=== PATIENT | female | born 1955 | race Caucasian/White ===

== ENCOUNTER 2020-05-29 09:58 | Outpatient (REF) | payer MEDICARE, SELFPAY ==
[2020-05-29 11:14] LABS: Iron 95 mcg/dL (30-160); Percent Iron Saturation 30 % (15-50); Total Iron Binding Capacity 320 mcg/dL (228-428); Unsaturated Iron Binding 225 ug/dL
== END 2020-05-29 09:59 | disposition home or self-care (01) ==
LOC: HO.BBR 09:58
PROVIDERS: PCP Internal Medicine; Visit Provider Physician Assistant Medical
DX: E83.110 Hereditary hemochromatosis (principal)
CPT/HCPCS: 83540

== ENCOUNTER 2020-07-19 08:51 | Outpatient (REF) | payer MEDICARE, SELFPAY ==
--- NOTE | 2020-07-19 08:56 | MM_ITS ---
EXAMINATION: MM SCREENING DIGITAL BREAST TOMOSYNTHESIS, BILATERAL CLINICAL INFORMATION: Screening. Asymptomatic. The lifetime risk of breast cancer based on the Tyrer-Cuzick Model is 5.8%. COMPARISON: Mammography: July 13, 2019 and studies dating back to January 08, 2013 TECHNIQUE: Digital breast tomosynthesis is performed in both the craniocaudal and mediolateral oblique views along with computer-aided detection (CAD). Synthesized 2D images are generated from the tomosynthesis. FINDINGS: The breasts are heterogeneously dense, which may obscure small masses (ACR BI-RADS breast composition Category c). There are no significant masses, abnormal calcifications, or other abnormalities. MM/MM tomosynthesis screening BI IMPRESSION: There are no significant changes from prior study. ASSESSMENT: BI-RADS 1: Negative RECOMMENDATION: Routine annual mammography screening. This patient's information was entered into a reminder system with a target due date for their next mammogram.
== END 2020-07-19 08:52 | disposition home or self-care (01) ==
LOC: HO.MAMMO 08:51
PROVIDERS: PCP Family Medicine; Visit Provider Family Medicine
DX: Z12.31 Encounter for screening mammogram for malignant neoplasm of breast (principal)
CPT/HCPCS: 77063; 77067

== ENCOUNTER 2020-08-28 09:58 | Outpatient (REF) | payer MEDICARE, SELFPAY ==
[2020-08-28 11:22] LABS: Iron 60 mcg/dL (30-160); Percent Iron Saturation 18 % (15-50); Total Iron Binding Capacity 342 mcg/dL (228-428); Unsaturated Iron Binding 282 ug/dL
== END 2020-08-28 09:59 | disposition home or self-care (01) ==
LOC: HO.BBR 09:58
PROVIDERS: PCP Family Medicine; Visit Provider Physician Assistant Medical
DX: E83.110 Hereditary hemochromatosis (principal)
CPT/HCPCS: 36415; 83540

== ENCOUNTER 2020-12-12 10:06 | Outpatient (REF) | payer MEDICARE, SELFPAY ==
[2020-12-12 11:30] LABS: Iron 68 mcg/dL (30-160); Percent Iron Saturation 19 % (15-50); Total Iron Binding Capacity 366 mcg/dL (228-428); Unsaturated Iron Binding 298 ug/dL
== END 2020-12-12 10:07 | disposition home or self-care (01) ==
LOC: HO.BBR 10:06
PROVIDERS: Visit Provider Physician Assistant Medical
DX: E83.110 Hereditary hemochromatosis (principal)
CPT/HCPCS: 36415; 83540

== ENCOUNTER 2021-03-07 09:54 | Outpatient (REF) | payer MEDICARE, SELFPAY ==
[2021-03-07 14:34] LABS: Iron 74 mcg/dL (30-160); Percent Iron Saturation 22 % (15-50); Total Iron Binding Capacity 335 mcg/dL (228-428); Unsaturated Iron Binding 261 ug/dL
== END 2021-03-07 09:55 | disposition home or self-care (01) ==
LOC: HO.BBR 09:54
PROVIDERS: Visit Provider Physician Assistant Medical
DX: E83.110 Hereditary hemochromatosis (principal)
CPT/HCPCS: 36415; 83540

== ENCOUNTER 2021-06-06 10:00 | Outpatient (REF) | payer MEDICARE, SELFPAY ==
[2021-06-06 12:12] LABS: Iron 59 mcg/dL (30-160); Percent Iron Saturation 17 % (15-50); Total Iron Binding Capacity 355 mcg/dL (228-428); Unsaturated Iron Binding 296 ug/dL
== END 2021-06-06 10:01 | disposition home or self-care (01) ==
LOC: HO.BBR 10:00
PROVIDERS: Visit Provider Physician Assistant Medical
DX: E83.110 Hereditary hemochromatosis (principal)
CPT/HCPCS: 36415; 83540

== ENCOUNTER 2021-08-15 08:50 | Outpatient (REF) | payer MEDICARE, SELFPAY ==
--- NOTE | ~2021-08-15 | MM_ITS ---
EXAMINATION: MM SCREENING DIGITAL BREAST TOMOSYNTHESIS, BILATERAL CLINICAL INFORMATION: Screening. Asymptomatic. The lifetime risk of breast cancer based on the Tyrer-Cuzick Model is 5%. COMPARISON: Mammography: 03/18/2021, 07/13/2019, 07/07/2018, 07/01/2017, 05/24/2016, 05/17/2016, 03/30/2015 TECHNIQUE: Digital breast tomosynthesis is performed in both the craniocaudal and mediolateral oblique views along with computer-aided detection (CAD). Synthesized 2D images are generated from the tomosynthesis. Additional right MLO view is provided. FINDINGS: There are scattered areas of fibroglandular density (ACR BI-RADS breast composition Category b). Right breast is similar to prior studies. There is no developing density or interval mass or architectural abnormality. Neither breast shows abnormal calcifications. The bilateral axilla and skin contours are unremarkable. Left CC view has chronic parenchymal asymmetry central inner breast with mild benign involution of the glandular tissue since 2014. The remaining tissue has rounded contour on CC view but without correlate on MLO view. Patient will be recalled in order to fully characterize area. MM/MM tomosynthesis screening BI IMPRESSION: 1. Left: Parenchymal asymmetry central inner breast on CC view with rounded contour. 2. Right: No mammographic evidence of malignancy. ASSESSMENT: BI-RADS 0: Incomplete - Need Additional Imaging Evaluation RECOMMENDATION: 1. Additional views of the left breast (spot CC, rolled CC x2). 2. Targeted ultrasound if warranted after review of the additional views. 3. Radiology department staff will contact the patient for additional imaging. This patient's information was entered into a reminder system with a target due date for their next mammogram.
== END 2021-08-15 08:51 | disposition home or self-care (01) ==
LOC: HO.MAMMO 08:50
PROVIDERS: PCP Family Medicine; Visit Provider Family Medicine
DX: Z12.31 Encounter for screening mammogram for malignant neoplasm of breast (principal)
CPT/HCPCS: 77063; 77067

== ENCOUNTER 2021-08-28 08:24 | Outpatient (REF) | payer MEDICARE, SELFPAY ==
--- NOTE | ~2021-08-28 | MM_ITS ---
EXAMINATION: MM DIAGNOSTIC DIGITAL BREAST TOMOSYNTHESIS, LEFT CLINICAL INFORMATION: Recall from screening for asymmetric density central inner left breast on CC view. No MLO correlate. COMPARISON: Mammography: 08/15/2021, 07/19/2020, 07/13/2019 TECHNIQUE: Digital breast tomosynthesis is performed. 2D images are generated from the tomosynthesis. The following views are obtained: Spot CC, rolled CC x2. FINDINGS: There are scattered areas of fibroglandular density (ACR BI-RADS breast composition Category b). The additional views show no persistent asymmetric density. There is no interval mass or architectural abnormality. Results are discussed with the patient at time of visit. MM/MM tomosynthesis added views L IMPRESSION: Additional views show no persistent asymmetric density, mass, architectural abnormality. ASSESSMENT: BI-RADS 1: Negative RECOMMENDATION: Routine annual mammography screening. This patient's information was entered into a reminder system with a target due date for their next mammogram.
== END 2021-08-28 08:25 | disposition home or self-care (01) ==
LOC: HO.MAMMO 08:24
PROVIDERS: PCP Family Medicine; Visit Provider Family Medicine
DX: N64.89 Other specified disorders of breast (principal)
CPT/HCPCS: 77061; 77065

== ENCOUNTER 2021-09-05 10:00 | Outpatient (REF) | payer MEDICARE, SELFPAY ==
[2021-09-05 11:56] LABS: Iron 93 mcg/dL (30-160); Percent Iron Saturation 29 % (15-50); Total Iron Binding Capacity 324 mcg/dL (228-428); Unsaturated Iron Binding 231 ug/dL
== END 2021-09-05 10:01 | disposition home or self-care (01) ==
LOC: HO.BBR 10:00
PROVIDERS: Visit Provider Physician Assistant Medical
DX: E83.110 Hereditary hemochromatosis (principal)
CPT/HCPCS: 36415; 83540

== ENCOUNTER 2021-12-05 10:00 | Outpatient (REF) | payer MEDICARE, SELFPAY ==
[2021-12-05 12:10] LABS: Iron 34 mcg/dL (30-160); Percent Iron Saturation 10 % (15-50); Total Iron Binding Capacity 325 mcg/dL (228-428); Unsaturated Iron Binding 291 ug/dL
== END 2021-12-05 10:01 | disposition home or self-care (01) ==
LOC: HO.BBR 10:00
PROVIDERS: Visit Provider Physician Assistant Medical
DX: E83.110 Hereditary hemochromatosis (principal)
CPT/HCPCS: 36415; 83540

== ENCOUNTER 2022-03-06 09:56 | Outpatient (REF) | payer MEDICARE, SELFPAY ==
[2022-03-06 11:58] LABS: Iron 46 mcg/dL (30-160); Percent Iron Saturation 13 % (15-50); Total Iron Binding Capacity 359 mcg/dL (228-428); Unsaturated Iron Binding 313 ug/dL
== END 2022-03-06 09:57 | disposition home or self-care (01) ==
LOC: HO.BBR 09:56
PROVIDERS: Visit Provider Physician Assistant Medical
DX: E83.110 Hereditary hemochromatosis (principal)
CPT/HCPCS: 36415; 83540

== ENCOUNTER 2022-06-12 10:56 | Outpatient (REF) | payer MEDICARE, SELFPAY ==
[2022-06-12 12:36] LABS: Iron 43 mcg/dL (30-160); Percent Iron Saturation 14 % (15-50); Total Iron Binding Capacity 315 mcg/dL (228-428); Unsaturated Iron Binding 272 ug/dL
== END 2022-06-12 10:57 | disposition home or self-care (01) ==
LOC: HO.BBR 10:56
PROVIDERS: PCP Family Medicine; Visit Provider Physician Assistant Medical
DX: E83.110 Hereditary hemochromatosis (principal)
CPT/HCPCS: 36415; 83540

== ENCOUNTER 2022-09-10 11:09 | Outpatient (REF) | payer MEDICARE, SELFPAY ==
--- NOTE | ~2022-09-10 | MM_ITS ---
EXAMINATION: MM SCREENING DIGITAL BREAST TOMOSYNTHESIS, BILATERAL CLINICAL INFORMATION: Screening. Asymptomatic. The lifetime risk of breast cancer based on the Tyrer-Cuzick Model is 5.3%. COMPARISON: Mammography: October 28, 2021 and studies dating back to May 17, 2016 TECHNIQUE: Digital breast tomosynthesis is performed in both the craniocaudal and mediolateral oblique views along with computer-aided detection (CAD). Synthesized 2D images are generated from the tomosynthesis. FINDINGS: There are scattered areas of fibroglandular density (ACR BI-RADS breast composition Category b). There are no significant masses, abnormal calcifications, or other abnormalities. MM/MM tomosynthesis screening BI IMPRESSION: No significant changes from prior exam. ASSESSMENT: BI-RADS 1: Negative RECOMMENDATION: Routine annual mammography screening. This patient's information was entered into a reminder system with a target due date for their next mammogram.
== END 2022-09-10 11:10 | disposition home or self-care (01) ==
LOC: HO.MAMMO 11:09
PROVIDERS: PCP Family Medicine; Visit Provider Family Medicine
DX: Z12.31 Encounter for screening mammogram for malignant neoplasm of breast (principal)
CPT/HCPCS: 77063; 77067

== ENCOUNTER 2022-09-10 12:37 | Outpatient (REF) | payer MEDICARE, SELFPAY ==
[2022-09-10 16:13] LABS: Iron 60 mcg/dL (30-160); Percent Iron Saturation 19 % (15-50); Total Iron Binding Capacity 316 mcg/dL (228-428); Unsaturated Iron Binding 256 ug/dL
== END 2022-09-10 12:38 | disposition home or self-care (01) ==
LOC: HO.BBR 12:37
PROVIDERS: PCP Family Medicine; Visit Provider Physician Assistant Medical
DX: E83.110 Hereditary hemochromatosis (principal)
CPT/HCPCS: 36415; 83540

== ENCOUNTER 2022-12-18 12:58 | Outpatient (REF) | payer MEDICARE, SELFPAY | END 2022-12-18 12:59 | disposition home or self-care (01) | LOC: HO.BBR 12:58 | PROVIDERS: Visit Provider Physician Assistant Medical | DX: E83.110 Hereditary hemochromatosis (principal) | CPT/HCPCS: 36415; 83540 ==

== ENCOUNTER 2023-03-20 12:58 | Outpatient (REF) | payer MEDICARE, SELFPAY ==
[2023-03-20 14:54] LABS: Iron 64 mcg/dL (30-160); Percent Iron Saturation 22 % (15-50); Total Iron Binding Capacity 295 mcg/dL (228-428); Unsaturated Iron Binding 231 ug/dL
== END 2023-03-20 12:59 | disposition home or self-care (01) ==
LOC: HO.BBR 12:58
PROVIDERS: PCP Family Medicine; Visit Provider Physician Assistant Medical
DX: E83.110 Hereditary hemochromatosis (principal)
CPT/HCPCS: 36415; 83540

== ENCOUNTER 2023-06-19 12:57 | Outpatient (REF) | payer MEDICARE, SELFPAY | END 2023-06-19 12:58 | disposition home or self-care (01) | LOC: HO.BBR 12:57 | PROVIDERS: PCP Family Medicine; Visit Provider Physician Assistant Medical | DX: E83.110 Hereditary hemochromatosis (principal) | CPT/HCPCS: 36415; 83540 ==

== ENCOUNTER 2023-09-15 10:52 | Outpatient (REF) | payer MEDICARE, SELFPAY ==
--- NOTE | ~2023-09-15 | MM_ITS ---
EXAMINATION: MM SCREENING DIGITAL BREAST TOMOSYNTHESIS, BILATERAL CLINICAL INFORMATION: Screening. Asymptomatic. COMPARISON: Mammography: This study is compared with prior exams dating back to 2021. TECHNIQUE: Digital breast tomosynthesis is performed in both the craniocaudal and mediolateral oblique views along with computer-aided detection (CAD). Synthesized 2D images are generated from the tomosynthesis. FINDINGS: The breasts are heterogeneously dense, which may obscure small masses (ACR BI-RADS breast composition Category c). There are no significant masses, abnormal calcifications, or other abnormalities. MM/MM tomosynthesis screening BI IMPRESSION: No mammographic evidence of malignancy. ASSESSMENT: BI-RADS BI-RADS 1 - Negative RECOMMENDATION: Routine annual mammography screening. 1 year F/U This examination should not preclude the clinical evaluation of a suspicious palpable abnormality. This patient's information was entered into a reminder system with a target due date for their next mammogram.
== END 2023-09-15 10:53 | disposition home or self-care (01) ==
LOC: HO.MAMMO 10:52
PROVIDERS: PCP Family Medicine; Visit Provider Family Medicine
DX: Z12.31 Encounter for screening mammogram for malignant neoplasm of breast (principal)
CPT/HCPCS: 77063; 77067

== ENCOUNTER → 2023-09-15 11:00 | Outpatient (BNV) | payer MEDICARE, SELFPAY | PROVIDERS: PCP Family Medicine; Visit Provider Radiology Diagnostic Radiology | DX: Z12.31 Encounter for screening mammogram for malignant neoplasm of breast (principal) | CPT/HCPCS: 77063; 77067 ==

== ENCOUNTER 2023-09-22 13:55 | Outpatient (REF) | payer MEDICARE, SELFPAY ==
[2023-09-22 15:32] LABS: Iron 81 mcg/dL (30-160); Percent Iron Saturation 30 % (15-50); Total Iron Binding Capacity 271 mcg/dL (228-428); Unsaturated Iron Binding 190 ug/dL
== END 2023-09-22 13:56 | disposition home or self-care (01) ==
LOC: HO.BBR 13:55
PROVIDERS: PCP Family Medicine; Visit Provider Physician Assistant Medical
DX: E83.110 Hereditary hemochromatosis (principal)
CPT/HCPCS: 36415; 83540

== ENCOUNTER 2024-01-09 10:51 | Outpatient (REF) | payer MEDICARE, SELFPAY ==
[2024-01-09 12:39] LABS: Iron 130 mcg/dL (30-160); Percent Iron Saturation 48 % (15-50); Total Iron Binding Capacity 272 mcg/dL (228-428); Unsaturated Iron Binding 142 ug/dL
[2024-01-09 12:57] LABS: Ferritin 19 ng/mL (10-250)
== END 2024-01-09 10:52 | disposition home or self-care (01) ==
LOC: HO.BBR 10:51
PROVIDERS: PCP Family Medicine; Visit Provider Internal Medicine Gastroenterology
DX: E83.110 Hereditary hemochromatosis (principal)
CPT/HCPCS: 36415; 82728; 83540

== ENCOUNTER 2024-04-14 12:56 | Outpatient (REF) | payer MEDICARE, SELFPAY | END 2024-04-14 12:57 | disposition home or self-care (01) | LOC: HO.BBR 12:56 | PROVIDERS: PCP Family Medicine; Visit Provider Internal Medicine Gastroenterology | DX: Z13.89 Encounter for screening for other disorder (principal) ==

== ENCOUNTER 2024-07-15 13:00 | Outpatient (REF) | payer MEDICARE, SELFPAY ==
[2024-07-15 14:57] LABS: Iron 133 mcg/dL (30-160); Percent Iron Saturation 46 % (15-50); Total Iron Binding Capacity 292 mcg/dL (228-428); Unsaturated Iron Binding 159 ug/dL
[2024-07-15 15:03] LABS: Ferritin 15 ng/mL (10-250)
--- OUTSIDE RECORDS SUMMARY | 2024-07-15 16:50 | XMS_ITS | Continuity of Care Document ---
Author Organization [facility] Address [address] [place] [address]- Care Team Providers Care Beater Out Leveling Machine Name Role Phone Luis PATINO, Aleja Arias Primary Care Physic devan Encounter [facility] Date(s): 05/26/24 - 06/25/24 [facility] [address] [place] [address]- Encounter Type: Triage Allergies, Adverse Reactions, Alerts Substance Criticality Severity Reaction Reaction Severity Status Glutens 1 Active 1celiac disease Immunizations Given and Recorded Vaccine Date Status Refusal Reason influenza virus vaccine, inactivated 03/12/23 William rded influenza virus vaccine, inactivated 1 04/16/22 Gi sherly influenza virus vaccine, inactivated 03/09/21 William rded influenza virus vaccine, inactivated 04/05/19 William rded influenza virus vaccine, inactivated 04/15/18 William rded influenza virus vaccine, inactivated 2 06/25/12 Gi sherly SARS-CoV-2(COVID-19)mRNA-LNP vac([id number]) 03/12/23 Recorded pneumococcal 20-valent conjugate vaccine 3 07/17/22 Given tetanus/diphtheria/pertussis, acel(Tdap) 4 07/17/22 Given [id number] bivalent booster vax 02/27/22 Recorded SARS-CoV-2 (COVID-19) mRNA-1273 vaccine 5 09/26/21 Given SARS-CoV-2 (COVID-19) mRNA-1273 vaccine 04/27/21 R ecorded SARS-CoV-2 (COVID-19) mRNA-1273 vaccine 09/14/20 G iven SARS-CoV-2 (COVID-19) mRNA-1273 vaccine 08/17/20 G iven zoster vaccine, inactivated 02/23/18 Recorded Zoster Vaccine Live 6 06/30/13 Recorded tetanus-diphtheria toxoids (Td) 7 11/17/09 Given 1Result Comment: [facility]; 15121-994-27 2Admin Note: [facility] 3Result Comment: [facility]: [id number] 4Result Comment: [facility]: 76223-329-22 5Result Comment: [facility] [id number] 6Result Comment: [07/11/2015] [facility] 7Admin Note: biologic Medications atorvastatin 20 mg oral tablet 1 tablet = 20 mg, By Mouth, Daily, # 90 tablet, 3 Refills, Maintenance, 05/26/24 1:59:00 PM EST, Tablet, [facility] #[id number], Partial fill upon patient request if the prescription is for a schedule II opioid drug., 172, cm, 03/03/24 10:22:00 EDT, Height, 72, kg, 07/18/23 11:04:00 EST, Dry Weight Start Date: 05/26/24 Status: Ordered Quantity: 90.0 Unit: tablet Repeat number: 4 Azo cranberry 0 Refills, Maintenance, 07/17/22 2:43:00 PM EST, Partial fill upon patient request if the prescription is for a schedule II opioid drug. Start Date: 07/17/22 Status: Ordered Repeat number: 1 Centrum Silver Women's By Mouth, Daily, 0 Refills, Maintenance, 08/23/21 10:59:00 AM EST, Partial fill upon patient requestif the prescription is for a schedule II opioid drug. Start Date: 08/23/21 Status: Ordered Repeat number: 1 Toprol XL 25 mg oral tablet, extended release 25 mg, 1, tablet, By Mouth, Daily, # 90 tablet, Refills 3, Tot. Refills 3, Maintenance, 06/24/24 8:40:00 AM EST, Route to Pharmacy Electronically, [facility] #[id number], Partial fill upon patientrequest if the prescription is for a schedule II opioid drug., 172, cm, 06/18/24 6:24:00 EST, Height, 72, kg, 07/18/23 11:04:00 EST, Dry Weight Start Date: 06/24/24 Stop Date: 06/19/25 Status: Ordered Quantity: 90.0 Unit: tablet Repeat number: 4 Indication: Unspecified atrial fibrillation Toprol XL 25 mg oral tablet, extended release 25 mg, 1, tablet, By Mouth, Daily, for 90 days, # 90 tablet, Refills 3, Tot. Refills 3, Hard Stop 07/02/24 11:39:00 AM EST, 07/08/23 11:39:00 AM EST, Route to Pharmacy Electronically, [facility] #[id number], Partial fill upon patient request if the prescription is for a schedule II opioid drug.,172.3, cm, 07/08/23 11:18:00 EST, Height Start Date: 07/08/23 Stop Date: 07/02/24 Status: Ordered Quantity: 90.0 Unit: tablet Repeat number: 4 Indication: Unspecified atrial fibrillation Xarelto 20 mg oral tablet 1 tablet = 20 mg, By Mouth, Daily before dinner, # 90 tablet, 3 Refills, Maintenance, 01/21/24 1:03:00 PM EDT, [facility] #[id number], 172, cm, 12/10/23 10:09:00 EDT, Height, 72, kg, 07/18/23 11:04:00 EST, Dry Weight Start Date: 01/21/24 Status: Ordered Quantity: 90.0 Unit: tablet Repeat number: 4 Xyzal By Mouth, Daily before dinner, 0 Refills, Maintenance, 12/10/23 10:07:00 AM EDT, Partial fill upon patient request if the prescription is for a schedule II opioid drug. Start Date: 12/10/23 Status: Ordered Repeat number: 1 Problem List Condition Confirmation Course Effective Dates Status Health Status Informant Carpal tunnel syndrome of right wrist Confirmed Active Gluten-sensitive enteropathy Confirmed Active Chronic sinusitis Confirmed Active Elevated BP without diagnosis of hypertension Confirmed Active Epidermoid cyst Confirmed Active Family history of cancer of colon Confirmed Active Hemochromatosis Confirmed Active Hypercholesterolemia Confirmed Active Joint pain Confirmed Active B12 deficiency anemia Confirmed Active Osteopenia Confirmed Active Paroxysmal atrial fibrillation Confirmed Active Left-sided sensorineural hearing loss Confirmed Active Vertigo Confirmed Active Social History Social History Type Response Smoking Status Never smoker entered on: 07/27/13 Sex Sex Representation Female (finding) Patient Care team information Care Team Personnel Name: Luis PATINO, Aleja Arias Position: [facility] Physician - Primary Care Member Role: PCP Address: [address] [place] [id number] Telecom: Name: Samia Contreras Position: [facility] Outreach Member Role: [employer] Physician Care Team Related Persons Name: BOBBY REYNA Name: GUCCI ERNST Insurance Providers Guarantor name: DEEDEE REYNA Health Plan Information #: 1 Payer: MEDICARE PART B OUTPT Member Number: NA Policy Number: NA Group Number: NA Health Plan Information #: 2 Payer: MEDEX Member Number: NA Policy Number: NA Group Number: NA
--- OUTSIDE RECORDS SUMMARY | 2024-07-15 16:50 | XMS_ITS | Continuity of Care Document ---
Author Organization [facility] ter Address [address] [place] [id number]- Care Team Providers Care Family [employer] Consumer [employer] Teacher Name Role Phone Luis PATINO, Aleja Arias Primary Care Physic devan Encounter [facility] Date(s): 06/18/24 - 06/18/[address] [id number] Discharge Disposition: A-D/C Home Attending Physician: Luigi Cuadra MD Admitting Physician: Luigi Cuadra MD Referring Physician: Luigi Cuadra MD Encounter Type: Disch Daystay Allergies, Adverse Reactions, Alerts Substance Criticality Severity [...] vaccine, inactivated 2 06/25/12 Gi sherly SARS-CoV-2(COVID-19)mRNA-LNP vac([id number]) 03/12/23 Recorded pneumococcal 20-valent conjugate vaccine 3 07/17/22 Given tetanus/diphtheria/pertussis, acel(Tdap) 4 07/17/22 Given [id number] bivalent booster vax 02/27/22 Recorded SARS-CoV-2 (COVID-19) mRNA-1273 vaccine 5 09/26/21 Given SARS-CoV-2 (COVID-19) mRNA-1273 vaccine 04/27/21 R ecorded SARS-CoV-2 (COVID-19) mRNA-1273 vaccine 09/14/20 G iven SARS-CoV-2 (COVID-19) mRNA-1273 vaccine 08/17/20 G iven zoster vaccine, inactivated 02/23/18 Recorded Zoster Vaccine Live 6 06/30/13 Recorded tetanus-diphtheria toxoids (Td) 7 11/17/09 Given 1Result Comment: [facility]; [id number] 2Admin Note: [facility] 3Result Comment: [facility]: [id number] 4Result Comment: [facility]: [phone] 5Result Comment: [facility] [id number] 6Result Comment: [07/11/2015] [facility] 7Admin Note: biologic Medications atorvastatin 20 mg oral tablet 1 tablet = 20 mg, By Mouth, Daily, # 90 tablet, 3 Refills, Maintenance, 05/26/24 1:59:00 PM EST, Tablet, [facility] #[id number], Partial fill upon patient request if the [...] tablet, Refills 3, Tot. Refills 3, Maintenance, 07/08/23 11:39:00 AM EST, Route to Pharmacy Electronically, [facility] #[id number], Partial fill upon patient request if the prescription is for a schedule II opioid drug., 172.3, cm, 07/08/23 11:18:00 EST, Height Start Date: 07/08/23 Stop Date: 07/02/24 Status: Ordered Quantity: 90.0 Unit: tablet Repeat number: 4 Indication: Unspecified atrial fibrillation Xarelto 20 mg oral tablet 1 tablet = 20 mg, By Mouth, Daily before dinner, # 90 tablet, 3 Refills, Maintenance, 01/21/24 1:03:00 PM [id number], 172, cm, 12/10/23 10:09:00 EDT, Height, 72, [...] hearing loss Confirmed Active Vertigo Confirmed Active Vital Signs Most recent to oldest [Reference Range]: 1 2 3 Height 172 cm (06/18/24 6:30 AM) Weight 76.9 kg (06/18/24 6:30 AM) Oxygen Saturation [94-100 %] 94 % (06/18/24 2:30 PM) 94 % (06/18/24 2:00 PM) 95 % (06/18/24 1:30 PM) Pulse Rate [55-90 bpm] 56 bpm (06/18/24 6:30 AM) Body Mass Index [18.5-24.99 kg/m2] 25.99 kg/m2 *H* (06/18/24 6:30 AM) Blood Pressure [90-138/55-84 mm Hg] 139/79mm Hg *H* (06/18/24 2:30 PM) 143/84mm Hg *H* (06/18/24 2:00 PM) 140/89mm Hg *H* (06/18/24 1:30 PM) Respiratory Rate [16-30 br/min] 23 br/min (06/18/24 2:30 PM) 0 br/min *L* (06/18/24 2:00 PM) 17 br/min (06/18/24 1:30 PM) Temperature [96.8-100.4 DegF] 99.0 DegF (06/18/24 2:00 PM) 98.7 DegF (06/18/24 1:00 PM) 97.9 DegF (06/18/24 11:30 AM) Liters per Minute 1 L/min (06/18/24 12:30 PM) 1 L/min (06/18/24 12:15 PM) 2 L/min (06/18/24 12:00 PM) Mode of Delivery (Oxygen) Room air (06/18/24 2:30 PM) Room air (06/18/24 2:00 PM) Room air (06/18/24 1:30 PM) Blood pressure sites Arm, left (06/18/24 7:00 AM) Arm, right (06/18/24 6:45 AM) Arm, right (06/18/24 6:30 AM) Temperature Route Temporal (06/18/24 2:00 PM) Temporal (06/18/24 1:00 PM) Temporal (06/18/24 11:30 AM) Social History Social History Type Response Smoking Status Never smoker entered on: 07/27/13 Sex Sex Representation Female (finding) Note * Event Display: Hemodynamic Procedure Report Authored Date: [id number] * Sherri Ureña RN: PERFORM Event Display: Discharge/Transfer Note Hospital Authored Date: [id number] Nursing Discharge Note Entered On: 06/18/2024 17:20 EST Performed On: 06/18/2024 17:17 EST by Sherri Ureña RN Nursing Discharge Note 2 Discharge Time : 06/18/2024 15:25 EST Discharge Level of Care at Discharge : Home/Jail/Foster Care Patient Left Unit Via : Wheelchair Patient Accompanied Off Unit with : Responsible adult DC Instructions Provided & Signed by Pt : Yes Patient Understands D/C Instructions : Yes Verbalized Understanding of D/C Plan By : Patient, Significant other Patient Instructions Discharge Signed : Yes Discharge Comments : IV site d/c'ed catheter intact. d/c educaiton completed. questions encourged and answered. pt and spouse verbalized full understanding and pt stable with all belonigngs at time of d/c home Did Pt have Specialty Bed or Wound Vac : No E Sherri Ortega RN - 06/18/2024 17:17 EST * E Sherri Ortega RN: PERFORM Event Display: Patient Education/Instruction Authored Date: [id number] Inpatient Adult Discharge Instructions. [address] [address] Name: DEEDEE REYNA : 1955?? Visit: 06/18/2024 06:01?? Current Date: 06/18/2024 13:05 ?? Account: [id number]?? Inpatient Adult Discharge Instructions We would like to thank you for allowing us to assist you with your healthcare needs. The following includes patient education materials and information regarding your injury/illness. Our entire staffstrives to provide an excellent experience for our patients and their families. PLEASE ENSURE YOU FOLLOW-UP PER THE INSTRUCTIONS BELOW! ?? YOUR OPINION IS IMPORTANT TO US! Please complete the survey you may receive by mail or email. Your feedback will be used to make improvements to the healthcare experiences of our patients and their families. Surveys are administered by [employer] ?? If further treatment with your primary care physician or another doctor is recommended, it is important for you to keep the appointment. Call your primary care physician or return to the Emergency Department immediately if your condition worsens, fails to improve, or new symptoms develop. If you need to find a doctor, you can call [facility] for a referral at [phone] or toll free at [phone]) or log in to [email or web address].. ?? [facility], in keeping with [facility] guidance, no longer requires face masks for staff, patientsor visitors in most situations. Similiar to time spent indoors at other locations, there is the chance that you were exposed to repiratory viruses during your time with us (such as flu or COVID-19). If you develop symptoms concerning for a viral respiratory infection, please seek testing (and treatment if indicated) from your medical provider or home test kit. ?? You can view and manage your care through the patient portal or by using a health care erlinda of your choosing. [employer] is a website that allows you to securely view your medical information including your hospital discharge summary, office visit summaries, medications and follow-up visits. You can also request appointments, renew medications, and request access to your medical information using a health care erlinda of your choosing, or just ask a question. You can enroll at [email or web address] or register during your next office visit. You have been discharged from [facility], Patient Care Unit: CARE??. If you have any questions regarding these instructions, including results of studies pending, afteryou leave, please call us and we will be happy to assist you 06/01. [facility] Nursing Unit Direct Phone Number, for 06/01 contact and results of studies pending CARE [address] [place] [id number] Your Care Team Attending Physician Luigi Cuadra MD?? Consulting Providers Luigi Cuadra MD?? Discharging Providers Darius Badillo DO Tests Performed Below is a partial list of the tests performed during your hospitalization. You may have had other tests and procedures not included in this list. Please discuss all test results with your provider. Type and Screen Type and Screen?? Primary Care Provider Aleja Smith MD? Advance Directive Health Care Proxy on File Yes - Health Care Proxy Discharge Vitals Temperature: 97.9 DegF Height: 172 cm Pulse Rate: 56 bpm Weight: 76.9 kg Respiratory Rate: 20 br/min Body Mass Index:??25.99 kg/m2??High Systolic Blood Pressure:??141 mm Hg??High Body surface area: 1.92 Diastolic Blood Pressure: 79 mm Hg ?? Oxygen Saturation: 98 % ?? Studies Pending All studies ordered during this hospital stay have been completed unless listed below. Please discuss all pending results with your provider listed above in these instructions. ?? No incomplete studies found?? What to do next Instructions From Your Doctor ?? Orders?? discharge after post procedure rest order complete, patient has ambulated and groin incision(s) arestable 30 mins post ambulation, ??06/18/24 10:47:00 EST?? You Need to Schedule the Following Appointments Follow Up with??Khalif PATINO, Luigi Mulligan Why: call with any questions or concerns Where: [address] [facility] [address] [facility] [place] [address]- Discharge Medications DEEDEE REYNA :1955 Visit Date:06/18/2024 Medications: Please continue your medications until treatment is completed or stopped by your provider. Medications not listed below should be discontinued. Discuss any questions related to medications with your provider. What How Much When Why Instructions Next Dose Unchanged Atorvastatin (atorvastatin 20 mg oral tablet) 1 tab(s) Oral Daily Unchanged Cranberry (Azo cranberry) Unchanged levocetirizine (Xyzal) Oral Daily before dinner Unchanged Metoprolol (Toprol XL 25 mg oral tablet, extended release) 1 tab(s) Oral Daily Afib Duration: 90 Days Unchanged Multivitamin With Minerals (Centrum Silver Women's) Oral Daily Unchanged rivaroxaban (Xarelto 20 mg oral tablet) 1 tab(s) Oral Daily before dinner Prescription Given During Visit No new medications prescribed at time of discharge.?? Laboratory Results Below is a partial list of the most recent Laboratory test results done prior to this discharge. You may have had other tests and procedures not included in this list. Please discuss all test resultswith your provider. Type and Screen (06/18/2024) ???Blood Type - A Positive???Antibody Screen - Negative You will be contacted within 72 hours with your results. Allergies (NKA means No Known Allergies) Glutens Problems Active Problems??(14) B12 deficiency anemia?? Carpal tunnel syndrome of right wrist?? Chronic sinusitis?? Elevated BP without diagnosis of hypertension?? Epidermoid cyst?? Family history of cancer of colon?? Gluten-sensitive enteropathy?? Hemochromatosis?? Hypercholesterolemia?? Joint pain?? Left-sided sensorineural hearing loss?? Osteopenia?? Paroxysmal atrial fibrillation?? Vertigo?? Education Materials Below is the list of Educational Leaflet Providered with your Discharge Instructions. [employer] Patient Education - M-Groin I Discharge Instructions?? [employer] Patient Education - Discharge Instructions for Catheter Ablation?? [employer] Patient Education - Anesthesia: General Anesthesia?? Valuables and Belongings I fully understand and agree that [facility] accepts no responsibility for all my personal property including clothing, toilet articles, radios, jewelry, dentures, hearing aids, rings, money, or any other property that is in my possession or is brought to me after admission. I understand certain valuables may be placed in a hospital safe for a short period of time. I understand that the hospital is not liable for loss or damage due to accident, fire, or other natural occurrence while said property is in the safe. I accept full responsibility for any personal property that I keep with me, and will not hold the hospital responsible in case of loss or disappearance. I acknowledge that i have been encouraged to send valuables and belongings home. ?? Review of Valuable and Belonging List: With patient, With family Date for Pt to Sign Valuables/Belongings: 06/18/24 07:02:00 ?? Other Discharge Information ? Pulmonary Rehab Status?? Pulmonary Rehab Discharge Status?? Respiratory Rate: 20 br/min ? Common Emergency Awareness Tips IS IT A STROKE? Act FAST and Check for these signs: FACE Does the face look uneven? ARM Does one arm drift down? SPEECH Does their speech sound strange? TIME Call at any sign of stroke ?? Heart Attack Signs Chest discomfort: Most heart attacks involve discomfort in the center of the chest and lasts more than a few minutes, or goes away and comes back. It can feel like uncomfortable pressure, squeezing, fullness or pain. Discomfort in upper body: Symptoms can include pain or discomfort in one or both arms, back, neck, jaw or stomach. Shortness of breath: With or without discomfort. Other signs: Breaking out in a cold sweat, nausea, or lightheaded. Remember, MINUTES DO MATTER. If you experience any of these heart attack warning signs, call to get immediate medical attention! ?? Smoking can increase your chances of developing chronic health problems and can cause harmful effects to other family members in your house. If you smoke, you are strongly encouraged to quit. Please call [facility] [employer] Link at [phone] or [phone] ([phone]) or log in to [email or web address] for referrals to smoking cessation programs. ?? 100 Suicide & Crisis Lifeline is available 06/01 if you or someone you know needs to find a reason to keep living. By calling 485 you'll be connected to a skilled, trained counselor at a crisis center in your area. INPATIENT DISCHARGE INSTRUCTIONS SIGNATURE PAGE DEEDEE REYNA Location:[facility] Registration Date and Time:06/18/2024 06:01 [facility] Primary Care Physician: Luis PATINO, Aleja Arias, Attending Physician: Khalif PATINO, Luigi Mullgian, I DEEDEE REYNA, have received the above patient education materials/instructions and have verbalized understanding. If ambulance or transport services are being used I further acknowledge being given a choice of service. ?? If you need to contact me, please call me at this number: . Patient/Pattern Mechanic Name: Patient/Pattern Mechanic Signature: Relationship to Patient: Witness Name/Signature: Date: * Sherri Ureña RN: PERFORM Event Display: Patient Education Leaflets Authored Date: [id number] M-Groin I Discharge Instructions ?? 179 Groin Discharge Instructions No heavy lifting over 10 pounds (for example: gallon of milk) 1 week following the procedure; gradually increase normal activity over the next 5 days. Avoid straining/pushing when moving bowels You may feel like resting more after your procedure. Slowly start to do more each day. Rest when you feel it is needed. Make sure to look at your procedure site every day until it is completely healed. You may see bruising at the puncture site and that is common after the procedure. You may shower the day after your procedure. Remove the band aid before showering. Wash the area gently with soap and water. Leave open to air. Do not take tub baths, hot tubs, soaking of the puncture site or swimming for 1 week. Do not put any creams, powders or lotions on your puncture site You may resume sexual activity the day after your procedure; avoid bending the hip on ?? the side of the groin puncture excessively and any strenuous positions for 1 week. Call your doctor if your procedure site develops any of the following: ??? New onset severe pain ??? New onset lump or swelling ??? Bleeding that does not stop with lightpressure ? * Sherri Ureña RN: PERFORM Event Display: Patient Education Leaflets Authored Date: [id number] Discharge Instructions for Catheter Ablation ?? [address] Discharge Instructions for Catheter Ablation You have had a procedure called catheter ablation. It was??used to treat an abnormal heartbeat (arrhythmia). This procedure destroyed (ablated) the cells in your heart that were causing your heart rhythm problem. During the procedure, the healthcare provider put a thin,??flexible??wire (catheter)??into a blood vessel in your groin. You may have also had a catheter placed through a vein in your neck. The provider then threaded the catheter to your heart and destroyed the cells causing the problem. Home care Here are recommendations for care at home:? Make arrangements for someone to drive you home after the procedure. This is you will be given medicine to relax you (sedation). Your healthcare provider may tell you not to??drive for 24 to 48 hours after the procedure. ??? Expect to be able to go back to your normal daily activities in the next 1 to 2 days. These??include walking, climbing stairs, and doing light casino floor person. ??? Don't do any heavy physical activity or excessive bending atthe waist for several days after the procedure. This will allow your body to heal. ??? Don't lift heavy objects for a period of time after your ablation. Talk with your healthcare provider about any specific limits you need to follow. Ask your provider when it is OK to lift heavy objects and returnto physical activity. ??? Ask your healthcare provider when you can??return to work. ??? Check the area where the catheter was inserted for signs of infection every day for a week. Keep the site dry for 1 to 2 days or as instructed. Signs of infection include redness, swelling, drainage, or warmth at the incision site.??Take your temperature if you feel you may have a fever. Let your provider know if you develop any symptoms of infection or see any discharge from your site. ??? Take your medicines exactly as directed. Don???t skip doses. You may need to make some changes in your medicines because of the ablation procedure. Be sure to go over your medicine instructions with your healthcare pr ovider before you are discharged. ??? Learn to take your own pulse. Keep a record of your results. Ask your healthcare provider which readings mean that you need medical attention. ?? Follow-up care Make a follow-up appointment as directed by your healthcare provider. Your provider will check how the catheter site is healing. In many cases, one ablation is enough to treat an arrhythmia. But sometimes the problem comes back or another problem is found. If this happens, you may need a second procedure. ?? When to call your healthcare provider Call your healthcare provider right away if you have any of the following: ??? Redness, pain, swelling, bleeding, or drainage from the area where the catheter was put in ???Temperature of 100.4??F (38.0??C) or higher, or as directed by your healthcare provider? Sudden coldness, pain, or numbness in the leg or arm where the catheter was put in ??? Nausea or vomiting??? Difficulty swallowing, excessive pain when swallowing, or vomiting blood ??? Heart rate that stays high Note: Ask your healthcare provider what to expect about your heartbeat. Sometimes the irregularity goes away right after the procedure. Other times it may take longer to go away. ?? Call 911 Call 911 right away if you notice: ??? Bleeding from the puncture site does not slow down when you press on it firmly ??? Chest pain, shortness of breath, or dizziness ??? Sudden numbness or weakness, especially on one side of the body, or difficulty speaking ??? Sudden loss of consciousness/responsiveness ?? Last Reviewed Date: 2021 ?? 3182-3866 [employer]. All rights reserved. This information is not intended as a substitute for professional medical care. Always follow your healthcare professional's instructions. ?? * Sherri Ureña RN: PERFORM Event Display: Patient Education Leaflets Authored Date: [id number] Anesthesia: General Anesthesia ?? [address] Anesthesia: General Anesthesia You???re due to have surgery. During surgery, you???ll be given medicine called anesthesia or anesthetic. This will keep you comfortable and pain-free. Your??anesthesia provider??will use general anesthesia . You are watched continuously during your procedure by your anesthesia provider. What is general anesthesia? General anesthesia puts you into a state like deep sleep. It goes into the bloodstream (IV anesthetics), into the lungs (gas anesthetics),or both. You feel nothing during the procedure. You won't remember it either. During the procedure, the anesthesia provider monitors you continuously. They trackyour heart rate and rhythm, blood pressure, breathing, and blood oxygen. ??? IV anesthetics. IV anesthetics are given through an IV (intravenous) line in your arm. They???re often given first. This is so you're asleep before a gas anesthetic is started. Some kinds of IV anesthetics ease pain. Others relax you. Your healthcare provider will decide which kind is best in your case. ??? Gas anesthetics. Gas anesthetics are breathed into the lungs. They're often used to keep you asleep. They can be given through a face mask. Or they can be given through a tube placed in your voice box (larynx) or breathing tube (trachea). o Face mask. Your anesthesia provider will most likely place the face maskover your nose and mouth while you???re still awake. You???ll breathe oxygen through the mask as your IV anesthetic is started. Gas anesthetic may be added through the mask. o Tube in the larynx or trachea. The tube will be inserted into your throat after you???re asleep. ?? Anesthesia tools and medicines You will likely have: ??? IV anesthetics. These are put into an IV line into your bloodstream. ??? Gas anesthetics.??You breathe these??anesthetics??into your lungs. Then they pass into your bloodstream. ??? Pulse oximeter. This is a small clip that's attached to??the end of your finger. It measures your blood oxygen level. ??? Electrocardiography leads (electrodes). ??These are small sticky padsthat are placed??on your chest. They record your heart rate and rhythm. ??? Blood pressure cuff. This reads your blood pressure. ?? Risks and possible complications General anesthesia has some risks. These include: ??? Breathing problems ??? Upset stomach (nausea)and vomiting ??? Sore throat or hoarseness (usually temporary) ??? Allergic reaction to the anesthetic ??? Irregular heartbeat (rare) ??? Cardiac arrest (rare) ?? Anesthesia safety ??? Follow any directions you're given for not eating or drinking before your procedure. ??? Tell your healthcare provider what medicines??you take. This includes prescription and fecv-yrl-dslyzqh medicines. It also includes vitamins, herbs, and other supplements. You'll be asked when those were last taken. ??? Have a trusted adult drive you home after the procedure. ??? For thefirst 24 hours after your surgery: o Don't drive or use heavy equipment. o Don't make important decisions or sign legal documents. If important decisions or signing legal documents is necessary during the first 24 hours after surgery, have a trusted family member or spouse act on your behalf. o Don't drink alcohol. o Have??a responsible adult??stay with you.??They can watch for problems and help keep you safe. ?? Last Reviewed Date: 2023 ?? 2476-0685 [employer]. All rights reserved. This information is not intended as a substitute for professional medical care. Always follow your healthcare professional's instructions. ?? EKG study * Event Display: ECG 12-Lead Authored Date: Please click on pdf link to open report * Event Display: ECG 12-Lead Authored Date: Ventricular Rate: 70 BPM Atrial Rate: 70 BPM P-R Interval: 184 ms QRS Duration: 90 ms Q-T Interval: 462 ms QTC Calculation(Bazett): 498 ms P [place]: 70 degrees R [place]: 57 degrees T [place]: 54 degrees Normal sinus rhythm with sinus arrhythmia Possible Anterior infarct , age undetermined T wave abnormality, consider lateral ischemia Abnormal ECG When compared with ECG of 18-Jun-2024 06:28, Lateral T wave abnormality is more evident Confirmed by Higinio North ([id number]) on 06/18/2024 10:50:39 AM [place]: Higinio North Patient Care team information Care Team Personnel Name: Luis PATINO, Aleja Arias Position: [facility] Physician - Primary Care Member Role: PCP Address: [address] [place] [address] Telecom: Name: Samia Contreras Position: [facility] Outreach Member Role: Lifetime Consulting Physician Care Team Related Persons Name: BOBBY REYNA Name: GUCCI ERNST Insurance Providers Guarantor name: DEEDEE REYNA Health Plan Information #: 1 Payer: MEDICARE PART B OUTPT Member Number: [id number] Policy Number: NA Group Number: NA Health Plan Information #: 2 Payer: MEDEX Member Number: [id number] Policy Number: NA Group Number: [id number]
== END 2024-07-15 13:01 | disposition home or self-care (01) ==
LOC: HO.BBR 13:00
PROVIDERS: Visit Provider Internal Medicine Gastroenterology
DX: E83.110 Hereditary hemochromatosis (principal)
CPT/HCPCS: 36415; 82728; 83540

== ENCOUNTER 2024-09-20 10:29 | Outpatient (REF) | payer MEDICARE, SELFPAY ==
--- OUTSIDE RECORDS SUMMARY | 2024-09-20 12:17 | XMS_ITS | Continuity of Care Document ---
Author Organization [facility] Address [address] [address]- [facility] Name Relationship Address Phone GUCCI ERNST Unknown Unavailable BOBBY REYNA spouse Unknown Unavailable Care Team Providers Care Masseur/Masseuse Name Role Phone Luis PATINO, Aleja Arias Primary Care Physic devan Encounter [facility] Date(s): 09/08/24 - 09/15/[address] [address] Attending Physician: Cortez Caro MD Admitting Physician: Cortez Caro MD Referring Physician: Luis PATINO, Aleja Arias Encounter Type: Office Visit Allergies, Adverse Reactions, Alerts Substance Criticality Severity [...] vaccine, inactivated 2 06/25/12 Gi sherly SARS-CoV-2(COVID-19)mRNA-LNP vac([id number]) 03/12/23 Recorded pneumococcal 20-valent conjugate vaccine 3 07/17/22 Given tetanus/diphtheria/pertussis, acel(Tdap) 4 07/17/22 Given [id number] bivalent booster vax 02/27/22 Recorded SARS-CoV-2 (COVID-19) mRNA-1273 vaccine 5 09/26/21 Given SARS-CoV-2 (COVID-19) mRNA-1273 vaccine 04/27/21 R ecorded SARS-CoV-2 (COVID-19) mRNA-1273 vaccine 09/14/20 G iven SARS-CoV-2 (COVID-19) mRNA-1273 vaccine 08/17/20 G iven zoster vaccine, inactivated 02/23/18 Recorded Zoster Vaccine Live 6 06/30/13 Recorded tetanus-diphtheria toxoids (Td) 7 11/17/09 Given 1Result Comment: [facility]; [phone] 2Admin Note: [facility] 3Result Comment: [facility]: [id number] 4Result Comment: [facility]: [id number] 5Result Comment: [facility] [phone] 6Result Comment: [07/11/2015] [facility] 7Admin Note: biologic Medications atorvastatin 20 mg oral tablet 1 tablet = 20 mg, By Mouth, Daily, # 90 tablet, 3 Refills, Maintenance, 05/26/24 1:59:00 PM EST, Tablet, [facility] #[id number], Partial fill upon patient request if the [...] 8:40:00 AM EST, Route to Pharmacy Electronically, [facility] #[id number], Partial fill upon patientrequest if the prescription [...] 3 Refills, Maintenance, 01/21/24 1:03:00 PM EDT, [id number], 172, cm, 12/10/23 10:09:00 EDT, Height, 72, [...] Most recent to oldest [Reference Range]: 1 Height 172 cm (09/08/24 10:41 AM) Weight 74.9 kg (09/08/24 10:41 AM) Oxygen Saturation [94-100 %] 97 % (09/08/24 10:41 AM) Pulse Rate [55-90 bpm] 63 bpm (09/08/24 10:41 AM) Body Mass Index [18.5-24.99 kg/m2] 25.32 kg/m2 *H* (09/08/24 10:41 AM) Blood Pressure [90-138/55-84 mm Hg] 134/ 76mm Hg (09/08/24 10:41 AM) Blood pressure sites Arm, left (09/08/24 10:41 AM) Weight Obtained Via Standing scale (09/08/24 10:41 AM) Social History Social History Type Response Smoking Status Never smoker entered on: 07/27/13 Sex Sex Representation Female (finding) EKG study * Event Display: ECG 12-Lead Authored Date: Please click on pdf link to open report * Event Display: ECG 12-Lead Authored Date: Ventricular Rate: 63 BPM Atrial Rate: 63 BPM P-R Interval: 184 ms QRS Duration: 76 ms Q-T Interval: 412 ms QTC Calculation(Bazett): 421 ms P Emery: 62 degrees R Emery: 21 degrees T Emery: 43 degrees Normal sinus rhythm Low voltage QRS Cannot rule out Anterior infarct (cited on or before 18-Jul-2023) Abnormal ECG Confirmed by CORTEZ CARO ([id number]) on 09/13/2024 1:55:51 PM [place]: CORTEZ CARO Cardiology Outpatient Note * Cortez Caro MD M: PERFORM Event Display: Cardiology Note Office Authored Date: [id number] Patient: ??DEEDEE REYNA ? Age:??69 Years?Sex:??Female?:??1955?? Indication for Consult Paroxysmal atrial fibrillation History of Present Illness/Interval History I saw Ihsan in consultation in the cardiac arrhythmia clinic at [facility]??[place].?? She is a 68-year-old lady??who was diagnosed with??atrial fibrillation in 2020.?? Initially, patient has had??presentations to the hospital with??presyncope and syncope and was found to be in atrial fibrillation.?? Nonetheless,??patient was noted??to be in atrial fibrillation with minimal to no symptoms.?? Mick had notifications from her watch??about episodes of??atrial fibrillation.?? In July 2023, patient was found to be in atrial fibrillation and a cardioversion to sinus rhythm.?? In November 2023,??p atient was noted to be in sinus rhythm??having episodes of paroxysmal atrial fibrillation.?? Today in the office, she is in normal sinus rhythm.?? She has no presyncope or syncope. ??She has no lightheadedness or dizziness,. ??She has no chest pain or shortness of breath.? Patient had a catheter ablation procedure for atrial fibrillation in June 2024??by PVI, PWI,??and CTI ablation lesion set.?? She has done very well since her catheter ablation procedure withoutany documented recurrences of atrial fibrillation. Review of Systems ?Constitutional, Eye, Skin, Head/Neck, ENMT, Respiratory, Cardio, Gastrointestinal, Endocrine, Muscoloskeletal, Neurologic, Psych reviewed and negative except as noted in HPI.?? Physical Exam Vitals & Measurements HR:??63??(Peripheral)?? BP:??134/76?? SpO2:??97%?? HT:??172??cm?? WT:??74.9??kg?? BMI:??25.32?? Weight lb/oz: 165 lb 2 oz ?General not in acute distress ?HEENT: PERRLA ?Neck: No JVD, No thyromegaly ?Lungs: clear to auscultation bilaterally ?Cardiovascular: regular rate and rhythm, normal s1 and s2 no murmurs ?Abdomen: soft, nontender, positive bowel sounds ?Extremities: no edema ?Skin: No rash ?Neuro: grossly normal ?? EKG shows normal sinus rhythm with normal conduction intervals Assessment/Plan Paroxysmal atrial fibrillation status post catheter ablation procedure by PVI, PWI, and CTI ablation lesion set in June 2024 PAF (paroxysmal atrial fibrillation) Patient has done very well normal sinus rhythm without any documented??recurrences of atrial fibrillation. ??She remains off of antiarrhythmic agents. ??She remains on therapeutic anticoagulation. ?? Cortez Caro MD Problem List/Past Medical History Ongoing B12 deficiency anemia Carpal tunnel syndrome of right wrist Chronic sinusitis Elevated BP without diagnosis of hypertension Epidermoid cyst Family history of cancer of colon Gluten-sensitive enteropathy Hemochromatosis Hypercholesterolemia Joint pain Left-sided sensorineural hearing loss Osteopenia Paroxysmal atrial fibrillation Vertigo Procedure/Surgical History No qualifying data available. Hospital Medications No qualifying data available Diagnostic Impression ECG ECG 12-Lead * Preliminary * ?? 10:02:04 Ventricular Rate: 63 BPM Atrial Rate: 63 BPM P-R Interval: 184 ms QRS Duration: 76 ms Q-T Interval: 412 ms QTC Calculation(Bazett): 421 ms P Emery: 62 degrees R Emery: 21 degrees T Emery: 43 degrees Normal sinus rhythm Low voltage QRS Cannot rule out Anterior infarct (cited on or before 18-Jul-2023) Abnormal ECG When compared with ECG of 18-Jun-2024 10:41, Serial changes of Anterior infarct Present ?? Naylor: , ?? ECG 12-Lead * Preliminary * ?? 10:02:04 Please click on pdf link to open report Stress Test No qualifying data available. Echo Echocardiogram - Complete ?? 10:55:33 Summary 1. Moderate concentric left ventricular hypertrophy. Normal left ventricular size. Mildly reduced left ventricular systolic function in the setting of atrial fibrillation. Left ventricular ejection fraction is 40 % by biplane Hernández???s estimation. There is mild global hypokinesis without obvious regional variation. Unable to assess diastolic function due to atrial fibrillation. 2. The right ventricle is normal in size and function. 3. The left atrium is mildly dilated. 4. No significant valvular abnormalities. 5. The pulmonary artery systolic pressure estimation is 19 mmHg plus the CVP or right atrial pressure. 6. The inferior vena cava size is normal (<= 2.1 cm) with reduced inspiratory collapse (< 50%), consistent with a right atrial pressure of approximately 8 mmHg. 7. There is no significant pericardial effusion. 8. The ascending aorta and aortic root are normal in size. ?? Comparison Comparison is made to the study of July 02, 2023. The left atrium is no longer severely dilated. No other significant changes. ?? Signature ?? Signed By: Hermes PATINO, John Wong Patient Care team information Care Team Personnel Name: Luis PATINO, Aleja Arias Position: [facility] Physician - Primary Care Member Role: PCP Address: [address] [place] [address]- Telecom: Name: Samia Contreras Position: [facility] Outreach Member Role: Lifetime Consulting Physician Care Team Related Persons Name: BOBBY REYNA Name: GUCCI ERNST Insurance Providers Guarantor name: DEEDEE REYNA Health Plan Information #: 1 Payer: MEDICARE PART B OUTPT Member Number: [id number] Policy Number: NA Group Number: NA Health Plan Information #: 2 Payer: MEDEX Member Number: [id number] Policy Number: NA Group Number: NA
== END 2024-09-20 10:30 | disposition home or self-care (01) ==
LOC: HO.MAMMO 10:29
PROVIDERS: PCP Family Medicine; Visit Provider Family Medicine
DX: Z12.31 Encounter for screening mammogram for malignant neoplasm of breast (principal)
CPT/HCPCS: 77063; 77067

== ENCOUNTER → 2024-09-20 11:00 | Outpatient (BNV) | payer MEDICARE, SELFPAY | PROVIDERS: PCP Family Medicine; Visit Provider Internal Medicine | DX: Z12.31 Encounter for screening mammogram for malignant neoplasm of breast (principal) | CPT/HCPCS: 77063; 77067 ==

== ENCOUNTER 2024-10-07 15:24 | Outpatient (REF) | payer MEDICARE, SELFPAY ==
[2024-10-07 17:00] LABS: Iron 40 mcg/dL (30-160); Percent Iron Saturation 14 % (15-50); Total Iron Binding Capacity 293 mcg/dL (228-428); Unsaturated Iron Binding 253 ug/dL
[2024-10-07 17:14] LABS: Ferritin 9 ng/mL (10-250)
--- OUTSIDE RECORDS SUMMARY | 2024-10-07 18:10 | XMS_ITS | Continuity of Care Document ---
Author Organization [facility] Address [address] [place] [address]- Care Team Providers Care Care Consultant Name Role Phone Luis PATINO, Aleja Arias Primary Care Physic devan Encounter [facility] Date(s): 09/02/24 - 10/02/24 [facility] [address] [place] [address]- Encounter Type: Triage Allergies, Adverse Reactions, Alerts [...] vaccine, inactivated 2 06/25/12 Gi sherly SARS-CoV-2(COVID-19)mRNA-LNP vac([id number]) 03/12/23 Recorded pneumococcal 20-valent conjugate vaccine 3 07/17/22 Given tetanus/diphtheria/pertussis, acel(Tdap) 4 07/17/22 Given [id number] bivalent booster vax 02/27/22 Recorded SARS-CoV-2 (COVID-19) mRNA-1273 vaccine 5 09/26/21 Given SARS-CoV-2 (COVID-19) mRNA-1273 vaccine 04/27/21 R ecorded SARS-CoV-2 (COVID-19) mRNA-1273 vaccine 09/14/20 G iven SARS-CoV-2 (COVID-19) mRNA-1273 vaccine 08/17/20 G iven zoster vaccine, inactivated 02/23/18 Recorded Zoster Vaccine Live 6 06/30/13 Recorded tetanus-diphtheria toxoids (Td) 7 11/17/09 Given 1Result Comment: [facility]; [id number] 2Admin Note: [facility] 3Result Comment: [facility]: [id number] 4Result Comment: [facility]: [id number] 5Result Comment: [facility] [phone] 6Result Comment: [07/11/2015] [facility] 7Admin Note: biologic Medications atorvastatin 20 mg oral tablet 1 tablet = 20 mg, By Mouth, Daily, # 90 tablet, 3 Refills, Maintenance, 05/26/24 1:59:00 PM EST, Tablet, [facility] #[id number], Partial fill upon patient request if the [...] 8:40:00 AM EST, Route to Pharmacy Electronically, [facility] #[id number], Partial fill upon patientrequest if the prescription [...] 3 Refills, Maintenance, 01/21/24 1:03:00 PM EDT, [email or web address] #[id number], 172, cm, 12/10/23 10:09:00 EDT, Height, 72, [...] Personnel Name: Luis PATINO, Aleja Arias Position: [facility] Physician - Primary Care Member Role: PCP Address: [address] [place] [address] Telecom: Name: Samia Contreras Position: [facility] Outreach Member Role: Lifetime Consulting Physician Care [...]
== END 2024-10-07 15:25 | disposition home or self-care (01) ==
LOC: HO.BBR 15:24
PROVIDERS: PCP Family Medicine; Visit Provider Internal Medicine Gastroenterology
DX: E83.110 Hereditary hemochromatosis (principal)
CPT/HCPCS: 36415; 82728; 83540

== ENCOUNTER 2025-01-05 12:59 | Outpatient (REF) | payer MEDICARE, SELFPAY ==
--- OUTSIDE RECORDS SUMMARY | 2025-01-05 13:32 | XMS_ITS | Encounter Summary ---
Author Organization [facility] Address [address] [place] [address] [place] [address] Phone Care Team Providers Care Landscape And Yardwork Laborer Name Role Phone Nando Jaramillo DO Primary Care Provider [phone] Aleja Olivo MD Primary Care Provider Encounter Details Date Type Department Care Team (Late st Contact Info) Description 02/11/2020 Procedure Pass [facility]oscopy Admitting Dept Virtual Department [address] [place] [address] Social History Tobacco Use Types Packs/Day Years Used Date Smoking Tobacco: Never Smokeless Tobacco: Never Alcohol Use Standard Drinks/Week Comments Yes 0 (1 standard drink = 0.6 oz pur e alcohol) 3-4 a week Comments No Sex and Gender Information Value Date Recorded Sex Assigned at Female 01/10/2018 7:20 PM EDT Legal Sex Female 9:56 PM EDT Gender Identity Female 01/10/2018 7:20 PM EDT Sexual Orientation Straight 01/10/2018 7: 20 PM EDT documented as of this encounter Plan of Treatment Not on file documented as of this encounter Visit Diagnoses Not on filedocumented in this encounter Care Teams Landscape And Yardwork Laborer Relationship Specialty Start Date End Date Nando Jaramillo DO [address] [place] [address] [email or web address] PCP - General Family Medicine 02/03/20 09/04/21 Aleja Olivo MD [address] [place] [address] [email or web address] PCP - General Family Medicine 09/05/21 documented as of this encounter Additional Source Comments The information contained in this document represents components of the legal health record. It is not the complete legal health record.[facility]
[2025-01-05 14:20] LABS: Iron 91 mcg/dL (30-160); Percent Iron Saturation 30 % (15-50); Total Iron Binding Capacity 300 mcg/dL (228-428); Unsaturated Iron Binding 209 ug/dL
[2025-01-05 14:32] LABS: Ferritin 9 ng/mL (10-250)
== END 2025-01-05 13:00 | disposition home or self-care (01) ==
LOC: HO.BBR 12:59
PROVIDERS: PCP Family Medicine; Visit Provider Internal Medicine Gastroenterology
DX: E83.110 Hereditary hemochromatosis (principal)
CPT/HCPCS: 36415; 82728; 83540

== ENCOUNTER 2025-03-30 12:56 | Outpatient (REF) | payer MEDICARE, SELFPAY ==
[2025-03-30 14:23] LABS: Iron 87 mcg/dL (30-160); Percent Iron Saturation 31 % (15-50); Total Iron Binding Capacity 279 mcg/dL (228-428); Unsaturated Iron Binding 192 ug/dL
[2025-03-30 14:38] LABS: Ferritin 10 ng/mL (10-250)
== END 2025-03-30 12:57 | disposition home or self-care (01) ==
LOC: HO.BBR 12:56
PROVIDERS: PCP Family Medicine; Visit Provider Internal Medicine Gastroenterology
DX: E83.110 Hereditary hemochromatosis (principal)
CPT/HCPCS: 36415; 82728; 83540